=== PATIENT | male | born 1960 | race Caucasian/White ===

== ENCOUNTER 2017-01-22 00:21 | Day surgery (SDC) | payer OTHER ==
[2017-01-22] VITALS (11 sets, daily range): BP systolic 125–139; BP diastolic 71–88; PULSE 68–83; RESP 16; O2SAT 89–95
[~2017-01-22] VITALS: Ht 198.1 cm; Wt 132.4 kg
[~2017-01-22 00:21] MED LIST: ASPI-973 PO; FEXO180T85 PO; LIP40 PO; LISI-571 PO; METF850T2 PO; MULT1CAP33 PO; NAPR220C11 PO; OMEG1CAP17 PO; TURM1POW MC
[2017-01-22 09:03] LABS: BASOPHILS % (AUTO) 0.5 % (0-3); EOSINOPHILS % (AUTO) 6.7 % (0-5); MONOCYTES % (AUTO) 10.1 % (4-12); Mean Corpuscular Hemoglobin 31.6 pg (27.0-35.0); Mean Corpuscular Volume 89.3 fL (81-100); NEUTROPHILS % (AUTO) 54.4 % (40-74); Platelet Count 194 bil/L (150-400)
[2017-01-22 09:16] LABS: INR 0.98 ratio
[2017-01-22] MEDS ORDERED: ACET-2605 PO (09:44)
[2017-01-22] MEDS ORDERED: LUTE1CAP4 PO (09:44)
[2017-01-22] MEDS ORDERED: CINN1CAP2 PO (09:44)
[2017-01-22] MEDS ORDERED: Heparin 1,000 Units/500 mL NS Premix IV ONE (10:51)
[2017-01-22] MEDS ORDERED: Heparin 10,000 Unit/1,000 mL NS Premix IV ONE (10:52)
[2017-01-22] MEDS ORDERED: fentaNYL-PF 50 mCg/mL 2 mL Inj ONE (11:09)
--- NOTE | 2017-01-22 11:14 | NUR ---
Admitted for a heart cath today by Dr No following HX of heart palpitations, SOB and failed stress test. NSR with no ectopy on admit - pt is here with his , Joceline. Pt and understand plan of care for today.
[2017-01-22] MEDS ORDERED: 0.9% Sodium Chloride 1,000 ML IV ONE (11:41)
[2017-01-22] MEDS ORDERED: Ondansetron 2 mg/mL 2 mL Inj IVPUSH PRN (11:45)
[2017-01-22] MEDS ORDERED: HYDROcodone-APAP 5-325 mg Tablet PO PRN (11:45)
--- NOTE | 2017-01-22 12:17 | NUR ---
Returned from heart cath - no significant CAD - plan follow up with Dr No with plans for holter monitor. Dr No discussed plan of care with patient and patient's , "Kathleen". Plan for D/C by 1415 today following a complete recovery post heart cath.
--- NOTE | 2017-01-22 14:32 | NUR ---
Recovery completed post heart cath - Right femoral access site sealed with Exoseal - site is dry and soft with no pain. NSR with no ectopy seen throughout recovery in [facility]. D/C home with a planned follow-up with Dr No. Kathleen is driving patient home today.
--- NOTE | 2017-01-22 19:13 | CS94 ---
[address] [address] DIAGNOSTIC CARDIAC CATHETERIZATION PATIENT: MILAGROS SUE : 1960 MR#: [id number] ADMIT: 01/22/2017 JOB ID: [id number] SERVICE DATE: 01/22/2017 INDICATION: History of exertional chest discomfort. Patient had an exercise treadmill stress test which demonstrated symptom limited angina with borderline EKG changes. The patient has a strong family history of coronary artery disease. Therefore, the patient was advised coronary angiography. CONSENT: The patient was explained the risks, the patient was explained the risks, benefits, and alternatives of the procedure. Informed signed consent was obtained and placed in the chart. DESCRIPTION OF PROCEDURE: The patient was brought to the cath laboratory and placed on the cath table. Both groins were prepped and draped in the usual sterile manner. Lidocaine 1% was infiltrated in the right groin area. Using a standard modified Seldinger technique, a 6-[place]oven[place] arterial sheath was placed in the right femoral artery without any difficulty. Subsequently, FL4 catheter was used to engage the left main coronary artery. Multiple views of the left coronary artery were obtained in multiple projections. FR4 catheter was used to engage the right coronary artery and multiple views of the right coronary artery were obtained in multiple projections. A pigtail catheter was advanced over the guidewire and placed in the left ventricle. Left ventricular hemodynamics was obtained. No left ventricular cineangiography was performed. After the completion of the test, an Angio-Seal closure device was deployed successfully. The patient was taken out of the cath laboratory in stable condition. Total fluoro time 1.7 minutes and total contrast used 75 cc. HEMODYNAMICS: The left ventricular end-diastolic pressure is 10 mmHg. There was no left ventricular to aortic gradient. CORONARY ANGIOGRAPHY: The left main coronary artery is a moderate-sized vessel which bifurcates into left anterior descending artery and left circumflex coronary artery. Left main coronary artery demonstrates no disease and is angiographically normal. The left anterior descending artery has mild luminal irregularities but free of any significant stenosis. The diagonal branch arising from the LAD demonstrates no significant disease. The left circumflex coronary artery demonstrates mild luminal irregularities in the mid segment. It gives off a first OM, 2nd and third OM branches. No significant stenosis is noted. The right coronary artery is a dominant vessel which demonstrates PD and posterolateral branches. The mid and distal RCA demonstrates mild luminal irregularities. The posterolateral branch arising from the right coronary artery demonstrates mild luminal irregularities. IMPRESSION: 1. Mild luminal irregularities of the three coronary arteries. Symptoms of exertional chest discomfort is most likely noncardiac. 2. Normal left ventricular end-diastolic pressure.
== END 2017-01-22 23:59 | disposition home or self-care (01) ==
LOC: SOUO 00:21
PROVIDERS: ATTEND Internal Medicine Cardiovascular Disease
DX: R07.89 Other chest pain (principal); R94.31 Abnormal electrocardiogram [ECG] [EKG]; Z82.49 Family history of ischemic heart disease and other diseases of the circulatory system; I10 Essential (primary) hypertension; E78.5 Hyperlipidemia, unspecified; E11.9 Type 2 diabetes mellitus without complications; G47.33 Obstructive sleep apnea (adult) (pediatric); Z79.82 Long term (current) use of aspirin; Z79.84 Long term (current) use of oral hypoglycemic drugs
CPT/HCPCS: 36415; 80048; 85025; 85610; 93005; 93458; 99152; 99153; C1769; J1644; J2250; J3010; Q9967